=== PATIENT | female | born 1960 | race Caucasian/White ===

== ENCOUNTER 2017-05-08 13:00 | Inpatient (IN) | payer OTHER ==
[~2017-05-08] VITALS: Ht 160 cm; Wt 65.3 kg
[2017-05-08] MEDS ORDERED: ASPIR 8181 MG PO (14:18)
[2017-05-08] MEDS ORDERED: ATORVASTATIN CA40 MG PO (14:20)
[2017-05-08] MEDS ORDERED: CALCI-CHEW500 MG PO (14:22)
[2017-05-08] MEDS ORDERED: ZYRTEC10 M2 PO (14:24)
[2017-05-08] MEDS ORDERED: ZESTORETIC 10-1 EACH PO (14:26)
[2017-05-08] MEDS ORDERED: MAGOX 400400 MG PO (14:26)
[2017-05-08] MEDS ORDERED: UNICOMPLEX M TA1 TA1 PO (14:27)
[2017-05-08] MEDS ORDERED: OMEGA-31000 M1 PO (14:29)
[2017-05-08] MEDS ORDERED: PERCOCET PO (14:31)
[2017-05-08] MEDS ORDERED: MIRALAX17 GM PO (14:32)
[2017-05-08 15:59] VITALS: BP 110/71
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
[2017-05-08 20:36] VITALS: BP 127/73
--- NOTE | 2017-05-08 21:55 | NUR ---
RESTING QUIETLY IN BED WATCHING TV. HINGED BRACE TO LLE INTACT. LEFT KNEE INCISION RAMP SERVICE AGENT, SLIGHTLY RED. DENIES NEED FOR PAIN MED. SNACK PROVIDED.
[2017-05-09 04:45] LABS: HEMATOCRIT 25.9 % (37.0-47.0); HEMOGLOBIN 8.5 gm/dL (12.0-15.0); MCH 29.5 pg (26.0-34.0); MCHC 32.8 g/dL (28.0-37.0); MCV 89.8 fL (80.0-100.0); MPV 7.3 fl. (7.2-11.1); RBC 2.89 mil/uL (4.20-5.00); RDW-CV 16.6 % (10.5-14.5); WBC 8.3 thou/uL (4.0-11.0)
[2017-05-09 04:58] LABS: CALCIUM 7.6 mg/dL (8.5-10.1); CREATININE 0.5 mg/dL (0.6-1.3); POTASSIUM 3.8 mmol/L (3.5-5.1)
--- NOTE | 2017-05-09 06:01 | NUR ---
UP X 3 DURING THE NIGHT TO BSC TO VOID. TRANSFERS WITH SBA, STAND, PIVOT. HOURLY ROUNDING IN PROGRESS.
[2017-05-09 08:20] VITALS: BP 104/80
--- NOTE | 2017-05-09 18:42 | NUR ---
ASSUMED CARE AT 0730 PATIENT ALERT/ORIENTED, NO COMPLAINTS OF PAIN THIS SHIFT, UP WITH ASSIST OF ONE AND WALKER/GAIT BELT, HOURLY ROUNDING COMPLETED, TO DINING ROOM FOR MEALS, PARTICIPATED IN ALL THERAPIES TODAY, CALL LIGHT IN REACH, BED/CHAIR ALARMS IN PLACE
--- NOTE | 2017-05-09 19:45 | NUR ---
RESTING QUIETLY IN BED AND WATCHING TV. JUST LEFT. LEFT LOWER EXTREMITY ELEVATED ON A PILLOW. TYLENOL GIVEN FOR C/O HEADACHE. AMBULATED TO THE BATHROOM WITH SBA, GAITBELT, PARTIAL WEIGHT BEARING TO LLE. DOES OWN HYGIENE AND CLOTHING ADJUSTMENT. HAS HINGED BRACE TO LLE.
[2017-05-09 20:36] VITALS: BP 128/74
--- NOTE | 2017-05-10 05:30 | NUR ---
UP X TWO TO BSC. HAD DIARRHEA THE SECOND TIME. DOES OWN ESTEPHANIA CARE AND CLOTHING ADJUSTMENTS. NO FURTHER C/O PAIN. HOURLY ROUNDING IN PROGRESS.
[2017-05-10 08:07] VITALS: BP 115/67
--- NOTE | 2017-05-10 18:41 | NUR ---
ASSUMED CARE AT 0730 PATIENT ALERT/ORIENTED, TYLENOL GIVE X1 FOR LEFT LEG PAIN WITH GOOD RELIEF, UP WITH ASSIST OF ONE AND WALKER/GAIT BELT, HINGED BRACE IN PLACE, HOURLY ROUNDING COMPLETED, TO DINING ROOM FOR MEALS, BED/CHAIR ALARMS IN PLACE
--- NOTE | 2017-05-10 20:00 | NUR ---
SITTING UP IN RECLINER WITH LEFT LEG ELEVATED WATCHING TV. DENIES NEED FOR PAIN MED. AMBULATED TO THE BATHROOM WITH SBA, GAITBELT, WALKER. LEFT HINGED BRACE INTACT. DOES OWN HYGIENE AND CLOTHING ADJUSTMENTS.
[2017-05-10 20:13] VITALS: BP 113/67
--- NOTE | 2017-05-11 06:43 | NUR ---
UP X 3 DURING THE NIGHT TO THE BSC TO VOID. GIVEN TYLENOL DURING THE NIGHT FOR C/O A HEADACHE WITH RELIEF. HOURLY ROUNDING IN PROGRESS.
[2017-05-11 08:12] VITALS: BP 110/75
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
--- NOTE | 2017-05-11 15:51 | NUR ---
I have reviewed the documentation by MONICA MAR from 05/11/17 to 05/11/17 and I concur with it. KALLI HULL
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
[2017-05-11 20:39] VITALS: BP 101/72
--- NOTE | 2017-05-12 05:33 | NUR ---
ASSUMED CARES AT 1920. PT ALERT AND ORIENTED. PLEASANT. MULTI FRACTURES. TTWB LLE. HINGED BRACE TO LLE. 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 DENIES ANY PAIN. SHE IS A SBA WITH GAIT BELT AND WALKER. UP TO BATHROOM. DOES OWN CARES. SLEPT WELL. USED CALL LIGHT APPROPRIATELY. BED ALARM ON.
[2017-05-12 07:30] VITALS: BP 117/70
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
[2017-05-12 19:25] VITALS: BP 104/64
--- NOTE | 2017-05-12 19:25 | NUR ---
PT SITTING UP IN RECLINER WITH LEGS ELEVATED. AMBULATED TO THE BATHROOM WITH SBA, GAITBELT, WALKER, TOUCH TOE WEIGHT BEARING TO LEFT LOWER EXTREMITY. HAS HINGEG LEFT KNEE BRACE IN PLACE. DENIES PAIN. REDNESS IN ESTEPHANIA AREA ALMOST GONE. PATIENT STATES THE ITCHING IN ESTEPHANIA AREA HAS SUBSIDED.
--- NOTE | 2017-05-13 05:42 | NUR ---
UP X ONE DURING THE NIGHT TO THE TOILET TO VOID. NO COMPLAINTS VOICED. HOURLY ROUNDING IN PROGRESS.
[2017-05-13 07:30] VITALS: BP 123/80
--- NOTE | 2017-05-13 11:24 | NUR ---
TARUN met with pt and pt friend bedside to review team conference summary. Plan for pt to remain on rehab one more week and for team to reteam; pt said she thought that Dr Hua mentioned the possibility of pt to dc Saturday 05/20. TARUN discussed recommendation of RW and services. SW to contact [facility] for dc needs at [phone] or OP [phone]. SW to continue to follow to assist with safe dc planning.
--- NOTE | 2017-05-13 15:26 | NUR ---
CALLED DR DANDRE FIELDS OFFICE AT [phone], LEFT MESSAGE WITH CLARY ABOUT CLARIFICATION ON ORDERS FOR LEFT KNEE HINGED BRACE; FLEXION DEGREE WITH AMBULATION AND ANY PASSIVE ROM. MESSAGE WILL BE PASSED ON TO HER FILM ARCHIVIST AND AWAITING CALL BACK
--- NOTE | 2017-05-13 18:15 | NUR ---
ASSUMED CARE AT 0730, PATIENT ALERT/ORIENTED, TYLENOL GIVEN FOR NECK PAIN WITH GOOD RESULTS, UP WITH STANDBY ASSIST, HINGED BRACE TO LEFT LEG ON WHEN WALKING, CALL TO ORTH SURGEON FOR RECOMMENDATIONS ON FLEXION DEGREE AND PASSIVE ROM, PARTICIPATED IN ALL THERAPIES, TO DINING ROOM FOR MEALS, HOURLY ROUNDING COMPLETED, BED/CHAIR ALARMS IN PLACE.
[2017-05-13 19:20] VITALS: BP 104/66
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
--- NOTE | 2017-05-14 07:03 | NUR ---
TYLENOL GIVEN AT 0158 FOR C/O NECK PAIN RATED "2" AND LEFT KNEE PAIN RATED "1" WITH RELIEF. UP X 2 DURING THE NIGHT TO TOILET TO VOID. DOES OWN HYGIENE AND CLOTHING ADJUSTMENT. HOURLY ROUNDING IN PROGRESS.
[2017-05-14 08:08] VITALS: BP 111/73
--- NOTE | 2017-05-14 16:28 | NUR ---
SPOKE WITH DR DOUGLAS AT [facility], ORDERS FOR LLE HINGED BRACE IS TO HAVE 0-40 DEGREES LOCK IN EXTENSION, OKAY TO KEEP UNLOCKED WHEN AT REST IN BED, PROM NOT TO EXCEED THE 40 DEGREE EXTENSION. PT/OT UPDATED ON ORDERS.
--- NOTE | 2017-05-14 18:23 | NUR ---
ASSUMED CARE AT 0730 PATIENT ALERT/ORIENTED, TYLENOL GIVEN FOR LEFT KNEE PAIN. UP WITH ASSIST OF ONE AND WALKER, HINGED BRACE TO LLE ON. PARTICIPATED IN ALL THERAPIES TODAY, TO DINING ROOM FOR MEALS, HOURLY ROUNDING COMPLETED, BED/CHAIR ALARMS IN PLACE, CALL LIGHT IN REACH.
[2017-05-14 19:30] VITALS: BP 111/75
--- NOTE | 2017-05-14 19:30 | NUR ---
RESTING QUIETLY IN BED WITH LEFT LEG ELEVATED ON A PILLOW. IN GOOD SPIRITS. SMILING. LOOKING FORWARD TO FAMILY BRINGING IN DINNER TOMORROW FOR HER BIRTHDAY. AMBULATED TO THE BATHROOM WITH SBA, GAITBELT, WALKER, TOUCH TOE WEIGHT BEARING TO LLE. LEFT HINGED KNEE BRACE IN PLACE. DOES OWN HYGIENE AND ESTEPHANIA CARE.
--- NOTE | 2017-05-15 06:03 | NUR ---
UP X ONE DURING THE NIGHT TO THE TOILET TO VOID. TYLENOL GIVEN AT 0250 FOR C/O NECK PAIN WITH RELIEF. HOURLY ROUNDING IN PROGRESS.
[2017-05-15 08:00] VITALS: BP 122/68
--- NOTE | 2017-05-15 16:26 | NUR ---
ASSUMMED CARE OF PT AT 0730, PT ALERT AND ORIENTED, TRANSFERS WITH SBA, GB WALKER, PARTIAL WB, COMPLAINS OF SLIGHT PAIN IN LEFT LEG, MEDICATED X 1 WITH GD GREGIF, PT DENIES NAUSEA, TAKING FOOD AND FLUIDS WELL, HINGED LEG BRACE ON LEFT LEG, VOIDS PER TOILET, AMBULATES TO DININGROOM, PT HAS RASH ON BILATERAL ANTICUBITAL AREAS, FACE AND NECK, MEDICATION ORDERED AND APPLIED, PARTICIPATED IN ALL THERAPEIS, HOURLY ROUNDING COMPLETED, ASSESSMENT COMPLETE, WILL CONTINUE TO MONITER.
[2017-05-15 20:00] VITALS: BP 86/61
[2017-05-15 20:30] VITALS: BP 101/67
--- NOTE | 2017-05-16 02:32 | NUR ---
BEGAN CARE OF PT AT 1930, PT A/OX4, ROOM AIR, UP WITH ASSIST X1 WITH WALKER/GAIT BELT TO BATHROOM, LLE IMMOBILIZER IN PLACE, BP TAKEN X2 DUE TO FIRST BP WAS 80'S/60'S, SECOND BP 100'S/60'S, PT REPORTED SHE DOES NOT FEEL DIZZY/LIGHTHEADED WHEN ASSESSING HER, NECK PAIN TREATED X1 WITH TYLENOL, PT REPORTED SHE WANTED TO SLEEP IN THE SHIRT AND SHORTS SHE HAS ON, NYSTATIN POWDER APPLIED, HYDROCORIZONE CREAM APPLIED BY PT, BED IN LOW LOCKED POSITION WITH ALARM SET AND CALL LIGHT IN REACH. WILL CONT TO MONITOR.
[2017-05-16 08:00] VITALS: BP 102/65
--- NOTE | 2017-05-16 15:48 | NUR ---
ASSUMMED CARE OF PT AT 0730, PT ALERT AND ORIENTED, PT TRANSFERS WITH SBA, GB AND WALKER, HINGED KNEE BRACE INTACT, PT MAINTAINS PARTIAL WT BEAR.PT COMPLAINED OF SLIGHT NECK PAIN AND MEDICATED X 1 FOR PAIN, PT COMPLAINS OF DECREASED APETITE BUT TAKING ADEQUATE FOOD AND FLUIDS, UP IN CHAIR MOST OF SHIFT, VOID PER TOILET, BM X 1 THIS SHIFT, PT STATES RASH IS IMPROVING, MEDICATION APPLIED X 1, PT PARTICIPATED IN ALL THERAPIES, HOURLY ROUNDING COMPLETED, ASSESSMENT COMPLETE, WILL CONTINUE TO MONITER.
[2017-05-16 20:00] VITALS: BP 99/63
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
[2017-05-17 08:00] VITALS: BP 103/69
--- NOTE | 2017-05-17 16:14 | NUR ---
ASSUMMED CARE OF PT AT 0730, PT ALERT AND ORIENTED, PT TRANSFERS WITH SBA GB WALKER, BRACE TO LEFT LEG, INCISION HEALING, PT DENIES NAUSEA, BM THIS AM, TAKING FOOD AND FLUIDS WELL ALTHOUGH PT STATES HER APETITE IS DECREASED, PT STATES PAIN IS TOLERABLE AND DOES NOT NEED PAIN MEDICATION, UP IN CHAIR ALL SHIFT, AMBULATED TO DININGROOM FOR LUNCH, PT BATHED SITTING AT SINK, HOURLY ROUNDING COMPLETED, ASSESSMENT COMPLETE, WILL CONTINUE TO MONITER.
[2017-05-17 20:00] VITALS: BP 100/67
--- NOTE | 2017-05-18 05:45 | NUR ---
ASSUMED CARE AT 1920. PT ALERT AND ORIENTED. PLEASANT. HINGED BRACE TO LLE. 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 SHE IS A SBA WITH GAIT BELT AND WALKER. UP TO BATHROOM. DOES OWN CARES. DENIES ANY PAIN. NO COMPLAINTS DURING THE NIGHT. SLEPT WELL. CALL LIGHT IN REACH. BED ALARM ON.
[2017-05-18 08:00] VITALS: BP 105/63
--- NOTE | 2017-05-18 18:43 | NUR ---
PT CARE ASSUMED THIS AM, ASSESSMENT AND VITAL SIGNS COMPLETED DOCUMENTED. PT CONTINUES TO PROGRESS TOWARD DISCHARGE GOALS AND IS HOPING TO GO HOME THURSDAY AFTER TEAM MEETING. PT HAS DENIED HAVING PAIN TODAY. PT AMBULATES TO AND FROM THE DINING ROOM FOR MEALS, WALKER AND GAIT BELT WITH SUPERVISION PER HOSPITAL POLICY.
[2017-05-18 20:00] VITALS: BP 104/62
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
[2017-05-19 07:55] VITALS: BP 125/79
--- NOTE | 2017-05-19 09:15 | NUR ---
SW faxed [employer] the referral and order info for rolling walker and HH services. SW to continue to follow up with finalizing safe dc plan for pt to dc home with after team conference on Thursday.
--- NOTE | 2017-05-19 15:35 | NUR ---
ASSUMMED CARE OF PT AT 0730, PT ALERT AND ORIENTED, PT TRANSFERS WITH SBA GB WALKER, AMBULATES TO BATHROOM, AND TO DININGROOM, PT DENIES NEED FOR PAIN MED THIS SHIFT, TAKING FOOD AND FLUIDS WELL, BRACE TO LEFT LEG, PARTIAL WEIGHT BEAR MAINTAINED, PARTICPATED IN ALL THERAPIES, HOURLY ROUNDING COMPLETED ASSESSMENT COMPLETE, WILL COTNINUE TO MONITER.
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
[2017-05-19 21:37] VITALS: BP 102/65
[2017-05-19 21:44] VITALS: BP 102/65
[2017-05-19] MEDS ORDERED: COLACE100 MG PO (21:51)
--- NOTE | 2017-05-20 05:34 | NUR ---
RESTED ON/OFF. NO COMPLAINTS VOICED. PT TO BE DISCHARGED TO HOME TODAY WITH HOME HEALTH. HOURLY ROUNDING IN PROGRESS.
[2017-05-20 09:26] VITALS: BP 102/65
[2017-05-20 12:41] VITALS: BP 102/65
[2017-05-20 12:52] VITALS: BP 102/65
[2017-05-20 13:03] VITALS: BP 102/65
--- NOTE | 2017-05-20 15:19 | NUR ---
SW met with pt to review team conference summary and discuss pt dc home today with and HH services to follow. TARUN followed up with [employer] who said that they didn't receive orders SW sent yesterday, TARUN sent again for RW and HH services. Lakisha from [facility] set up HH services through [facility] and Cyril arranged walker through [facility] [phone] ([facility] to deliver to pt home since pt was ready to dc; borrowed walker and pt to return once pt is safely in the home and walker delivered). Pt in agreement with plan; no other needs or concerns expressed.
--- NOTE | 2017-05-20 15:20 | NUR ---
PATIENT DISCHARGED TO HOME, ALL INSTRUCTIONS GIVEN TO PATIENT, PATIENT STATES UNDERSTANDING OF ALL. WALKER FROM [employer] NOT DELIVERED, PATIENT TO BORROW OUR WALKER AND WILL BRING IT BACK LATER. PATIENT DID PARTICIPATE IN ALL THERAPIES TODAY, TO DINING ROOM FOR LUNCH, HOURLY ROUNDING COMPLETED, BED/CHAIR ALARMS IN PLACE AND CALL LIGHT IN REACH. NO PAIN REPORTED, HINGED BRACE TO LEFT LEG LOCKED AT 40 DEGREES, WILL RECIEVE HOME HEALTH AT D/C.
[2017-05-20 15:30] VITALS: BP 102/65
--- NOTE | 2017-06-15 15:02 | D ---
[facility] [address] [place] [address] DISCHARGE SUMMARY Name: ABEL NATHAN Room: [address] M.R.#: [id number] Admission: 05/08/17 Attend Phys: Sera Hua DO Discharge: 05/20/17 Date of : 58 Report #: [id number] THIS REPORT FOR: //name// CC: Sera Arias DATE OF SERVICE: 05/20/2017 DISCHARGE DIAGNOSES: Status post C2 through C5 laminectomy due to cervical epidural hematoma post evacuation, traumatic left femoral fracture, status post intramedullary nailing, status post left patellar fracture, currently in a hinged brace, retroperitoneal bleed, debility with alterations in activities of daily living and ongoing history of hypertension. DISCHARGE DISPOSITION: To the home setting with support of her and family with continued PT and OT. Medication reconciliation was completed by myself. She will also have home health nursing care. Handicap placard for 3 months was given. She was also written for home based work protocol given her limited ambulation, inability to drive and difficulty with dressing with hinged brace on. She is toe touch weightbearing on the left lower extremity. She is to keep the brace on hinged at 0-40 degrees at all times, but can have it off when she is in the bed. She will follow up with ortho within 1 week and her primary care physician within 1 week. Notifications for physician were given. Fall precautions and toe-touch weightbearing precautions continue. DISCHARGE PHYSICAL EXAMINATION: GENERAL: Alert, oriented, in no apparent distress. VITAL SIGNS: Reviewed and are stable. HEENT: Head atraumatic, normocephalic. Pupils equal, round, reactive. ABDOMEN: Soft, nontender, nondistended. NEUROLOGIC: Cranial nerves 2-12 are grossly intact with no focal neuro deficits, 5/5 strength in the bilateral upper [place] [address] DISCHARGE SUMMARY Name: ABEL NATHAN Room: [address]#: [id number] Admission: 05/08/17 Attend Phys: Sera Hua DO Discharge: 05/20/17 Date of : 58 Report #: [id number] SKIN: Left knee incision and left hip incision is clean, dry and intact with no areas of dehiscence or drainage. There is no odor. <ELECTRONICALLY SIGNED> By: Sera Hua DO 06/15/17 1502 [id number] Hua DO /nt
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
== END 2017-05-20 15:30 | disposition home health service (06) | DRG 964 ==
LOC: M.REH 13:00
PROVIDERS: ADMIT Physical Medicine & Rehabilitation
DX: S72.92XA Unspecified fracture of left femur, initial encounter for closed fracture (principal); S82.002A Unspecified fracture of left patella, initial encounter for closed fracture; S36.892A Contusion of other intra-abdominal organs, initial encounter; S22.41XA Multiple fractures of ribs, right side, initial encounter for closed fracture; S14.109A Unspecified injury at unspecified level of cervical spinal cord, initial encounter; R53.81 Other malaise; I10 Essential (primary) hypertension; Z98.1 Arthrodesis status; Z79.82 Long term (current) use of aspirin; Z79.899 Other long term (current) drug therapy; V89.2XXA Person injured in unspecified motor-vehicle accident, traffic, initial encounter; Y93.89 Activity, other specified; Y92.89 Other specified places as the place of occurrence of the external cause; Y99.8 Other external cause status